=== PATIENT | female | born 1995 | race Caucasian/White ===

== ENCOUNTER 2022-12-25 08:42 | Day surgery (SDC) | payer BC ==
[2022-12-25 09:12] VITALS: BMI 28.1
== END 2022-12-25 09:32 | disposition home or self-care (01) ==
LOC: CSHLD/OP 08:42
PROVIDERS: ATTEND Obstetrics & Gynecology
DX: O26.853 Spotting complicating pregnancy, third trimester (principal); Z3A.33 33 weeks gestation of pregnancy; Z88.0 Allergy status to penicillin
CPT/HCPCS: 99283

== ENCOUNTER 2023-02-01 10:45 | Inpatient (IN) | payer BC ==
[2023-02-01 11:14] VITALS: BMI 29.5
[2023-02-01 12:01] LABS: Fetal Membranes Rupture No Membranes Rupture (No Rupture)
[2023-02-01] MEDS ORDERED: hydrALAZINE 20 MG/ML VIAL SLOW IVP PRN ×2 (12:22→13:42)
[2023-02-01] MEDS ORDERED: Ondansetron PF 4 MG/2 ML Vial IVP PRN ×2 (13:42→22:25)
[2023-02-01] MEDS ORDERED: Tranexamic Acid 1,000 MG/10 ML VIAL IVP PRN (13:42)
[2023-02-01] MEDS ORDERED: fentaNYL 50 mcg/mL 1 mL Vial SLOW IVP PRN (13:42)
[2023-02-01] MEDS ORDERED: Ibuprofen 800 MG TAB PO PRN (13:42)
[2023-02-01] MEDS ORDERED: Methylergonovine 0.2 MG/ML VIAL IM PRN (13:42)
[2023-02-01] MEDS ORDERED: Diphenoxylate HCl/Atropine Tablet PO PRN ×2 (13:42)
[2023-02-01] MEDS ORDERED: Lidocaine 1% (PF) 30 ML VIAL SC PRN (13:42)
[2023-02-01] MEDS ORDERED: Acetaminophen 500 MG TAB PO PRN (13:42)
[2023-02-01] MEDS ORDERED: Promethazine HCl 25 MG/ML VIAL IM PRN ×2 (13:42→22:25)
[2023-02-01] MEDS ORDERED: Carboprost 250 MCG/ML AMP IM PRN (13:42)
[2023-02-01] MEDS ORDERED: HYDROcodone/Acetaminophen 5/325 mg Tablet PO PRN ×2 (13:42)
[2023-02-01] MEDS ORDERED: Misoprostol 200 MCG TAB PR PRN (13:42)
[2023-02-01] MEDS ORDERED: Oxytocin 30 units/NS 500 ML 500 ML IV SCH ×2 (13:45)
[2023-02-01] MEDS: Lactated Ringer's 1,000 ML IV SCH (14:16)
[2023-02-01 14:48] LABS: Mean Corpuscular HGB CONC 36.1 g/dL (32.0-36.0); Mean Corpuscular Hemoglobin 28.8 pg (27.0-33.0); Mean Corpuscular Volume 79.8 fl (81.6-98.3); Mean Platelet Volume 12.5 fl (7.4-10.4); Platelet Count 182 10x3/uL (150-450); RBC Distribution Width 13.5 % (11.5-14.5); Red Blood Cell (RBC) Count 4.51 10x6/uL (3.90-5.03); White Blood Cell (WBC) Count 9.7 10x3/uL (3.5-10.5)
[2023-02-01 15:25] LABS: HBSAg Index 0.15 S/CO (0-0.99); Hep B Surf Ag - L&D Non-Reactive S/CO (NonReactive)
[2023-02-01 15:26] LABS: Syphilis Antibody Nonreactive (Nonreactive); Syphilis Antibody Index 0.04 S/CO (<1.00 Non-Reactive)
[2023-02-01] MEDS ORDERED: fentaNYL/Ropivacaine Epidural 100 ML ONE (21:49)
[2023-02-01] MEDS ORDERED: diphenhydrAMINE 50 MG/ML VIAL IVP PRN (22:25)
[2023-02-01] MEDS ORDERED: Acetaminophen 325 MG TAB PO PRN (22:25)
[2023-02-01] MEDS ORDERED: Moisturizing Cream (Eucerin) 113 GM JAR TOP PRN (22:25)
[2023-02-01] MEDS ORDERED: ePHEDrine Sulfate 50 MG/10 ML VIAL SLOW IVP PRN (22:25)
[2023-02-01] MEDS ORDERED: Lactated Ringer's 500 ML IV PRN (22:25)
[2023-02-01] MEDS ORDERED: Naloxone HCl 0.4 mg/ml Vial IVP PRN ×2 (22:25)
[2023-02-01] MEDS ORDERED: fentaNYL 2 mcg/Ropivacaine 0.2% Epidural 100 ML CADD EPIDURAL SCH (22:30)
[2023-02-01] MEDS ORDERED: Communication Order-Pharmacy FS SCH (22:30)
[2023-02-02] MEDS ORDERED: hydrALAZINE 20 MG/ML VIAL SLOW IVP PRN (02:48)
[2023-02-02] MEDS ORDERED: Preparation H Ointment 28 GM TUBE PR PRN (02:48)
[2023-02-02] MEDS ORDERED: Boostrix 0.5 ML (Tdap) VIAL (>/=7 yrs of age) IM ONE (02:48)
[2023-02-02] MEDS ORDERED: Bisacodyl 10 MG SUPP PR PRN (02:48)
[2023-02-02] MEDS ORDERED: Milk Of Magnesia 30 ML UDCUP PO PRN (02:48)
[2023-02-02] MEDS ORDERED: Lanolin Ointment 7 GM TUBE TOP PRN (02:48)
[2023-02-02] MEDS: Ibuprofen 800 MG TAB PO SCH ×3 (06:16→21:11)
[2023-02-02] MEDS: Lactated Ringer's 1,000 ML IV SCH (08:48)
[2023-02-02] MEDS: Ferrous Sulfate 325 MG TAB PO SCH ×2 (08:49→15:05)
[2023-02-02] MEDS: traMADol HCl 50 MG TAB PO PRN ×2 (09:12→18:07)
[2023-02-02] MEDS: Prenatal Vitamin 1 TAB PO SCH (09:13)
[2023-02-02] MEDS: Docusate 100 MG CAP PO SCH ×2 (09:13→21:11)
[2023-02-02] MEDS: HYDROcodone/Acetaminophen 5/325 mg Tablet PO PRN ×2 (13:22→21:11)
[2023-02-02] MEDS ORDERED: Benzocaine-Menthol 82.5 ML CAN TOP PRN (13:56)
[2023-02-03] MEDS: Ibuprofen 800 MG TAB PO SCH ×3 (05:32→21:19)
[2023-02-03] MEDS: Docusate 100 MG CAP PO SCH ×2 (07:56→21:19)
[2023-02-03] MEDS: Prenatal Vitamin 1 TAB PO SCH (07:56)
[2023-02-03] MEDS: traMADol HCl 50 MG TAB PO PRN (11:49)
[2023-02-03] MEDS: Ferrous Sulfate 325 MG TAB PO SCH ×2 (12:12→16:17)
[2023-02-03 20:29] VITALS: BP 132/87; TEMP 98.6
[2023-02-03] MEDS: HYDROcodone/Acetaminophen 5/325 mg Tablet PO PRN (21:19)
[2023-02-04] MEDS: Ibuprofen 800 MG TAB PO SCH (05:57)
[2023-02-04] MEDS: Ferrous Sulfate 325 MG TAB PO SCH (09:45)
[2023-02-04] MEDS: Docusate 100 MG CAP PO SCH (09:45)
[2023-02-04] MEDS: Prenatal Vitamin 1 TAB PO SCH (09:45)
[2023-02-04] MEDS: traMADol HCl 50 MG TAB PO PRN (11:54)
== END 2023-02-04 13:32 | disposition home or self-care (01) | DRG 807 ==
LOC: CSHLD/OP 10:45 → CSHLD 13:43 → CSHPED 02-02 13:35
PROVIDERS: ADMIT Obstetrics & Gynecology; ATTEND Obstetrics & Gynecology
PROC: 10E0XZZ Delivery of Products of Conception, External Approach (ICD-10-PCS; principal; 2023-02-02)
PROC: 0KQM0ZZ Repair Perineum Muscle, Open Approach (ICD-10-PCS; 2023-02-02)
PROC: 3E033XZ Introduction of Vasopressor into Peripheral Vein, Percutaneous Approach (ICD-10-PCS; 2023-02-02)
DX: O42.02 Full-term premature rupture of membranes, onset of labor within 24 hours of rupture (principal); Z37.0 Single live birth; Z88.0 Allergy status to penicillin; Z3A.39 39 weeks gestation of pregnancy; O70.1 Second degree perineal laceration during delivery
CPT/HCPCS: 36415; 51702; 76819; 84112; 85027; 86780; 86850; 86900; 86901; 87340; 99285; J2405; J2590; J3010; J7120

== ENCOUNTER 2025-02-28 19:47 | Inpatient (IN) | payer BC ==
[2025-02-28 21:23] VITALS: BMI 31.8
[2025-02-28] MEDS ORDERED: HYDROcodone/Acetaminophen 5/325 mg Tablet PO PRN ×2 (21:45)
[2025-02-28] MEDS ORDERED: Methylergonovine 0.2 MG/ML VIAL IM PRN (21:45)
[2025-02-28] MEDS ORDERED: Acetaminophen 500 MG TAB PO PRN (21:45)
[2025-02-28] MEDS ORDERED: Carboprost 250 MCG/ML AMP IM PRN (21:45)
[2025-02-28] MEDS ORDERED: Tranexamic Acid 1,000 MG/10 ML VIAL IVP PRN (21:45)
[2025-02-28] MEDS ORDERED: Lidocaine 1% (PF) 30 ML VIAL SC PRN (21:45)
[2025-02-28] MEDS ORDERED: hydrALAZINE 20 MG/ML VIAL SLOW IVP PRN (21:45)
[2025-02-28] MEDS ORDERED: Ibuprofen 800 MG TAB PO PRN (21:45)
[2025-02-28] MEDS ORDERED: Diphenoxylate HCl/Atropine Tablet PO PRN ×2 (21:45)
[2025-02-28] MEDS ORDERED: Oxytocin 30 units/NS 500 ML 500 ML IV SCH (21:45)
[2025-02-28 22:03] LABS: Hematocrit 32.0 % (34.9-44.5); Hemoglobin 11.6 g/dL (12.0-15.5); Mean Corpuscular Hemoglobin 28.7 pg (27.0-33.0); Mean Corpuscular Volume 79.2 fL (81.6-98.3); Platelet Count 146 10x3/uL (150-450); Red Blood Cell (RBC) Count 4.04 10x6/uL (3.90-5.03); White Blood Cell (WBC) Count 8.48 10x3/uL (3.5-10.5)
[2025-02-28] MEDS: Oxytocin 30 units/NS 500 ML 500 ML IV SCH (22:14)
[2025-02-28 23:33] LABS: Hep B Surf Ag - L&D Non-Reactive S/CO (NonReactive)
[2025-02-28 23:34] LABS: Syphilis Antibody Index 0.03 S/CO (<1.00 Non-Reactive)
[2025-03-01] MEDS ORDERED: Ondansetron PF 4 MG/2 ML Vial IVP PRN (03:54)
[2025-03-01] MEDS ORDERED: Acetaminophen 325 MG TAB PO PRN (03:54)
[2025-03-01] MEDS ORDERED: diphenhydrAMINE 50 MG/ML VIAL IVP PRN (03:54)
[2025-03-01] MEDS ORDERED: Communication Order-Pharmacy FS SCH (04:00)
[2025-03-01] MEDS ORDERED: fentaNYL 2 mcg/Ropivacaine 0.2% Epidural 100 ML CADD EPIDURAL SCH (04:00)
[2025-03-01] MEDS: Ondansetron PF 4 MG/2 ML Vial IVP PRN (04:22)
[2025-03-01] MEDS ORDERED: Preparation H Ointment 28 GM TUBE PR PRN (08:34)
[2025-03-01] MEDS ORDERED: Bisacodyl 10 MG SUPP PR PRN (08:34)
[2025-03-01] MEDS ORDERED: Milk Of Magnesia 30 ML UDCUP PO PRN (08:34)
[2025-03-01] MEDS ORDERED: Benzocaine-Menthol 82.5 ML CAN TOP PRN (08:34)
[2025-03-01] MEDS ORDERED: Lanolin Ointment 7 GM TUBE TOP PRN (08:34)
[2025-03-01] MEDS ORDERED: hydrALAZINE 20 MG/ML VIAL SLOW IVP PRN (08:34)
[2025-03-01] MEDS: fentaNYL/Ropivacaine Epidural 100 ML ONE (08:46)
[2025-03-01] MEDS: Ferrous Sulfate 325 MG TAB PO SCH ×2 (09:47→16:02)
[2025-03-01] MEDS: Ibuprofen 800 MG TAB PO SCH (12:23)
[2025-03-02 05:20] LABS: #Basophils 0.05 10x3/uL (0.0-0.2); #Eosinophils 0.07 10x3/uL (0.0-0.5); #Monocytes 0.64 10x3/uL (0.0-1.1); #Neutrophils 6.76 10x3/uL (1.5-8.4); %Basophils 0.5 % (0.0-2.0); %Eosinophils 0.7 % (0.0-6.0); %Lymphocytes 27.9 % (18.0-47.0); %Monocytes 6.1 % (0.0-10.0); %Neutrophils 64.2 % (40.0-75.0); Hematocrit 32.5 % (34.9-44.5); Hemoglobin 11.4 g/dL (12.0-15.5); Mean Corpuscular Hemoglobin 28.4 pg (27.0-33.0); Mean Corpuscular Volume 81.0 fL (81.6-98.3); Platelet Count 148 10x3/uL (150-450); Red Blood Cell (RBC) Count 4.01 10x6/uL (3.90-5.03); White Blood Cell (WBC) Count 10.51 10x3/uL (3.5-10.5)
[2025-03-02 07:50] VITALS: BP 135/85; TEMP 98.3
== END 2025-03-02 14:05 | disposition home or self-care (01) | DRG 807 ==
LOC: CSHLD 19:47 → CSHPP 03-01 08:10
PROVIDERS: ADMIT Obstetrics & Gynecology; ATTEND Obstetrics & Gynecology
PROC: 3E0P7VZ Introduction of Hormone into Female Reproductive, Via Natural or Artificial Opening (ICD-10-PCS; 2025-02-28)
PROC: 10E0XZZ Delivery of Products of Conception, External Approach (ICD-10-PCS; principal; 2025-03-01)
PROC: 0HQ9XZZ Repair Perineum Skin, External Approach (ICD-10-PCS; 2025-03-01)
DX: O98.52 Other viral diseases complicating childbirth (principal); Z37.0 Single live birth; Z3A.39 39 weeks gestation of pregnancy; B00.9 Herpesviral infection, unspecified; O70.0 First degree perineal laceration during delivery; R11.0 Nausea; O99.893 Other specified diseases and conditions complicating puerperium; Z98.890 Other specified postprocedural states
CPT/HCPCS: 36415; 51702; 85025; 85027; 86780; 86850; 86900; 86901; 87340; J2405; J2590; J7120; Q0162